=== PATIENT | female | born 1955 | race Caucasian/White ===

== ENCOUNTER → 2019-01-30 07:01 | Day surgery (SDC) | payer BC ==
[~2019-01-30 07:01] MED LIST: Buffered Lidocaine 1% SYRIN* 1 ML/SYRINGE INTRADERM ONE; Dexamethasone IV* 4 MG/ML 1 ML (4 MG) ONE; Famotidine IV* 10 MG/ML 2 ML (20 mg) IV ONE; Famotidine IV* 10 MG/ML 2 ML (20 mg) ONE; Ketorolac INJ* 30 MG/ML 1 ML VIAL ONE; Lactated Ringers 1000 ML Bag* 1,000 ML IV SCH; Lidocaine 2% PF * 5 ML VIAL ONE; Midazolam* 1 MG/ML 5 ML VIAL (5 MG) ONE; Naloxone* 0.4 MG/ML 1 ML VIAL IV PRN; Ondansetron INJ* 2 MG/ML VIAL IV PRN; Ondansetron INJ* 2 MG/ML VIAL ONE; Propofol* 10 MG/ML 20 ML BTL ONE; Silver Nitrate/Potassium Nitr* 1 EA STICK ONE; fentaNYL* 50 MCG/ML 2 ML VIAL (100 MCG VIAL) IV PRN; fentaNYL* 50 MCG/ML 2 ML VIAL (100 MCG VIAL) ONE; oxyCODONE/Acetamin 5/325 MG* TAB PO PRN
[2019-01-30 07:52] LABS: Hematocrit 42 % (35-47); Hemoglobin 14.5 g/dL (12.0-16.0); Mean Corpuscular HGB Conc 34 g/dL (31-36); Mean Corpuscular Hemoglobin 32 pg (27-31); Mean Corpuscular Volume 93 fL (80-97); Mean Platelet Volume 8.1 fL (7.4-10.4); Platelet Count 219 10^3/uL (150-450); Red Blood Count 4.54 10^6 /uL (3.70-4.87); Red Cell Distribution Width 14 % (10-15); White Blood Count 6.8 10^3/uL (3.5-10.8)
[2019-01-30 08:08] LABS: Albumin 4.5 g/dL (3.2-5.2); Albumin/Globulin Ratio 1.7 (1-3); BUN/Creatinine Ratio 23.4 (8-20); Calcium 10.6 mg/dL (8.6-10.3); EGFR African American 91.6 (>60); EGFR Non-African American 75.7 (>60); Globulin 2.7 g/dL (2-4); Potassium 4.2 mmol/L (3.5-5.0); Total Bilirubin 0.6 mg/dL (0.2-1.0); Total Protein 7.2 g/dL (6.4-8.9)
[2019-01-30 09:51] VITALS: BP 146/84
--- NOTE | 2019-01-30 21:57 | OP ---
DATE OF OPERATION: 01/30/19 [facility] DATE OF : 55 SURGEON: Amanda Rangel MD ANESTHESIOLOGIST: Dr. Fulton. ANESTHESIA: General. PRE-OP DIAGNOSIS: Postmenopausal bleeding. POST-OP DIAGNOSES: 1. Postmenopausal bleeding. 2. Endometrial polyp. OPERATIVE PROCEDURE: Dilation and curettage, hysteroscopy, and MyoSure polypectomy. INDICATIONS: This patient is a 63-year-old 3, para 2, who presented reporting a small amount of light vaginal bleeding, which occurred many years after menopause. Transvaginal ultrasound had noted an approximately 1.2-cm endometrial thickness. Endometrial biopsy in the office was unsuccessful due to severe cervical stenosis. Considering the findings, an operating room procedure was recommended and the patient agreed. She was extensively counseled and consent was signed. ESTIMATED BLOOD LOSS: Minimal. URINE OUTPUT: 400 cc. IV FLUIDS: 1400 cc lactated Ringer's. MATERIALS TO LAB: Endometrial polyps and endometrial curettings. FINDINGS: Two polypoid masses within the uterine cavity, which appear benign and smooth. No other abnormalities seen. COMPLICATIONS: None. DESCRIPTION OF PROCEDURE: The risks, benefits, and alternatives were described to the patient and informed consent was obtained. The patient was taken to the operating room with IV running where general anesthesia was induced and found to be adequate. The patient was prepped and draped in the normal sterile fashion in a high lithotomy position and Jeferson stirrups. A time-out was performed. The bladder was emptied. A bivalved speculum was placed in the vagina and a single- tooth tenaculum was placed in the anterior cervix. The smallest of the Hanks dilators were then used to probe the cervical canal and eventually was able to locate it and start to dilate it. After using several dilators to a maximum size of about 26, a 6-mm MyoSure hysteroscope was able to be fit through the cervical canal and into the uterine cavity. This was done with saline running. On inspection, there did appear to be 2 polyps within the uterine cavity. A MyoSure LITE device was prepared and placed through the scope. This was then used to completely excise both of the polypoid masses. At that time, there were no other abnormalities seen. The hysteroscope was then removed. A gentle curettage was performed using a Kevorkian curette and the curettings were collected on Telfa. The bleeding was minimal. The tenaculum was removed from the cervix and there was good hemostasis present. The speculum was removed and the patient was returned to the supine position. The patient tolerated the procedure well. Sponge, lap, and needle counts were correct x2. [id number]/[facility] #: [id number] [facility]
== END | disposition home or self-care (01) ==
LOC: OR 07:01
PROVIDERS: ATTEND Obstetrics & Gynecology
DX: N95.0 Postmenopausal bleeding (principal); N84.0 Polyp of corpus uteri; G47.33 Obstructive sleep apnea (adult) (pediatric); E03.9 Hypothyroidism, unspecified; K21.9 Gastro-esophageal reflux disease without esophagitis; R91.8 Other nonspecific abnormal finding of lung field
CPT/HCPCS: 36415; 80053; 85027; 88305; A9270-GY; J1100; J1885; J2250; J2405; J2704; J3010